=== PATIENT | male | born 2000 | race Caucasian/White ===

== ENCOUNTER 2018-12-12 14:22 | Emergency (ER) | payer SELFPAY ==
[2018-12-12] MEDS ORDERED: ERYTHROMYCIN OPTH OINT 3.5GM OPTH ONE (14:53)
--- NOTE | 2018-12-12 14:53 | Emergency Department Record ---
History of Present Illness - General Chief Complaint: General Stated Complaint: DROOPING FACE Time Seen by Provider: 12/12/18 14:43 Source: Patient Mode of Arrival: Wheelchair Limitations: No limitations - History of Present Illness Initial Comments: 18 yo male presents with one week of left facial weakness with closing his eye and his smile. No injury or infection recently that he recalls. He is still able to close his eye but it is irritated at times. No other weakness, vision changes, coordination changes, speech changes, swallowing changes. -: Week(s) Location: Left face History of same: No Place: Home Severity: Moderate Quality: Other Improves With: None Worsens With: None Context: Gradual onset Associated Symptoms: Denies other symptoms - [place] Coma Scale Eye Response: (4) Open spontaneously Motor Response: (6) Obeys commands Verbal Response: (5) Oriented [place] Total: 15 - Related Data Home Medications: Previous Rx's Medication Instructions Recorded Acyclovir 400 mg PO 5XD #50 tablet 12/12/18 Prednisone [Prednisone 20Mg] 60 mg PO DAILY #7 tab 12/12/18 Allergies/Adverse Reactions: Allergies Allergy/AdvReac Type Severity Reaction Status Date / Time No Known Allergies Allergy PT UNSURE Verified 12/12/18 14:29 OF REACTION Travel Screening - Travel/Exposure Within Last 30 Days Have you traveled within the last 30 days?: No Review of Systems Constitutional: Denies: Chills, Malaise, Weakness Eyes: Reports: Eye pain (irriated if stares). Denies: Eye discharge, Photophobia, Vision change ENT: Denies: Congestion, Dental pain, Ear pain, Throat pain Respiratory: Denies: Cough, Dyspnea, Wheezes Cardiovascular: Denies: Chest pain Endocrine: Denies: Fatigue Gastrointestinal: Denies: Abdominal pain, Diarrhea, Nausea, Vomiting Genitourinary: Denies: Dysuria, Frequency, Hematuria Musculoskeletal: Denies: Arthralgia, Back pain, Myalgia Skin: Denies: Bruising, Change in color, Rash Neurological: Reports: Weakness. Denies: Abnormal gait, Confusion, Headache, Numbness, Paresthesias, Seizure, Tingling, Vertigo Psychiatric: Denies: Anxiety Hematological/Lymphatic: Denies: Easy bleeding, Easy bruising Past Medical History - SOCIAL HISTORY Smoking Status: Never smoker Alcohol Use: None Drug Use: None - RESPIRATORY Hx Respiratory Disorders: No - CARDIOVASCULAR Hx Cardio Disorders: No - NEURO Hx Neuro Disorders: No - GI Hx GI Disorders: No - Hx Genitourinary Disorders: No - ENDOCRINE Hx Endocrine Disorders: No - MUSCULOSKELETAL Hx Musculoskeletal Disorders: No - PSYCH Hx Psych Problems: No - HEMATOLOGY/ONCOLOGY Hx Hematology/Oncology Disorders: No Family Medical History Any Significant Family History?: No Physical Exam - General General Appearance: Alert, Oriented x3, Cooperative, No acute distress Limitations: No limitations - Head Head exam: Atraumatic, Normal inspection - Eye Eye exam: PERRL, Conjunctival injection (very mild on the left), EOMI. negative: Normal appearance, Nystagmus, Periorbital swelling Pupils: Normal accommodation, Other (Lid lag with blinking. He can completely close the left eye but I can overcome his strength). negative: Irregular, Unequal - ENT ENT exam: negative: Normal exam Ear exam: Normal external inspection Nasal Exam: Normal inspection Mouth exam: Tongue normal, Other (Smile weakness on the left. He has 3 visible teeth on the right and only two on the left). negative: Normal external inspection, Drooling, Muffled voice, Tongue elevation, Trismus Teeth exam: Normal inspection Throat exam: Normal inspection. negative: Tonsillar erythema, Tonsillomegaly, Tonsillar exudate - Neck Neck exam: Normal inspection - Respiratory Respiratory exam: Normal lung sounds bilaterally. negative: Respiratory distress - Cardiovascular Cardiovascular Exam: Regular rate, Normal rhythm, Normal heart sounds - Neurological Neurological exam: Alert, Normal gait, Oriented X3. negative: Abnormal gait, Altered, CN II-XII intact (weakness of the facial nerve, vazquez's phenomenom with looking up with blinking, upper lid weakness and asymmetric smile on the left with only two visible teeth and three on the right) - Psychiatric Psychiatric exam: negative: Agitated, Anxious - Skin Skin exam: Dry, Intact, Normal color, Warm Course Vital Signs 12/12/18 14:24 Temperature 98.7 F Pulse Rate 105 H Respiratory 18 Rate Blood Pressure 123/80 Pulse Ox 98 - Reevaluation(s) Reevaluation #1: We discussed at length Vazquez's Palsy He is treating later so I explained that not all people get full function back He will still be treated with Acyclovir and Prednisone We discussed home care and reasons to return to the ED We discussed eye care as well given the lid is weaker 12/12/18 15:03 Disposition Disposition: Discharge Clinical Impression: Vazquez's palsy Disposition: Home, Self-Care Condition: (1) Good Instructions: Vazquez Palsy (ED) Additional Instructions: Protect the eye at night time if the lid is not closing Call for a new family doctor tomorrow Return if you need a recheck or any new concerns Take the Prednisone and the Acyclovir as directed Prescriptions: Acyclovir 400 mg PO 5XD #50 tablet Prednisone [Prednisone 20Mg] 60 mg PO DAILY #7 tab Referrals: [facility] [MEDICAL DOCTOR] - Time of Disposition: 14:55 Quality - Quality Measures Quality Measures: N/A - Blood Pressure Screening Does Patient Have Any of the Following: No Blood Pressure Classification: Pre-Hypertensive BP Reading Systolic Measurement: 123 Diastolic Measurement: 80 Screening for High Blood Pressure: < Pre-Hypertensive BP, F/U Documented > [[id number]] Pre-Hypertensive Follow-up Interventions: Referral to alternative/primary care provider.
[2018-12-12] MEDS ORDERED: PREDNISONE 20 MG TAB PO ONE (14:54)
[2018-12-12] MEDS ORDERED: ACYCLOVIR 200 MG CAPSULE PO ONE (15:02)
[2018-12-12] MEDS ORDERED: ACYCLOVIR 200 MG CAPSULE PO SCH (22:00)
== END 2018-12-12 15:15 | disposition home or self-care (01) ==
LOC: ER 14:22
DX: G51.0 Bell's palsy (principal)
CPT/HCPCS: 99282; 99283; J7512